=== PATIENT | female | born 1970 | race African-American/Black ===

== ENCOUNTER 2019-01-13 05:52 | Emergency (ER) | payer MEDICAID, MEDICARE ==
[~2019-01-13] VITALS: Ht 160 cm; Wt 64.0 kg
[~2019-01-13 05:52] MED LIST: ALBU18HF2; SEROQUEL
[2019-01-13] MEDS ORDERED: LORAZEPAM 2MG/ML CPJ IM ONE (06:30)
[2019-01-13] MEDS ORDERED: OLANZAPINE 10 MG/VIAL IM ONE (06:30)
[2019-01-13 07:32] LABS: BASOPHILS % 0.5 % (0.0-2.0); EOSINOPHILS % 0.9 % (0.0-5.0); HEMATOCRIT. 31.9 % (36.0-48.0); HEMOGLOBIN. 10.9 g/dL (12.0-16.0); LYMPHOCYTES % 14.2 % (20.0-50.0); MEAN CORPUSCULAR HEMOGLOBIN 33.3 pg (28.0-32.0); MEAN CORPUSCULAR VOLUME 97.4 fL (81.0-99.0); MEAN PLATELET VOLUME 8.2 fl (7.4-10.4); MONOCYTES % 8.1 % (2.0-8.0); NEUTROPHILS % 76.3 % (40.0-76.0); PLATELET 221 x1000/uL (130-400); RED BLOOD CELL COUNT 3.28 mill/uL (4.2-5.4); RED CELL DISTRIBUTION WIDTH 14.2 % (11.6-14.6)
[2019-01-13] MEDS ORDERED: SODIUM CHLORIDE 0.9% 1,000 ML IV ONE (07:46)
[2019-01-13 07:59] LABS: HCG SCREEN NEGATIVE
[2019-01-13 08:00] LABS: CHLORIDE 105 mEq/L (98-107)
[2019-01-13 08:03] LABS: ETHANOL BLOOD < 10 mg/dL
[2019-01-13 08:24] LABS: *BARBITURATES SCREEN URINE NEGATIVE (NEGATIVE); *BENZODIAZEPINES SCREEN URINE NEGATIVE (NEGATIVE)
[2019-01-13 08:25] LABS: *AMPHETAMINES SCREEN URINE NEGATIVE (NEGATIVE); METHADONE URINE SCREEN NEGATIVE (NEGATIVE); OPIATES URINE SCREEN NEGATIVE (NEGATIVE); PHENCYCLIDINE URINE SCREEN NEGATIVE (NEGATIVE)
[2019-01-13 08:28] LABS: *COCAINE SCREEN URINE PRESUMTIVE POSITIVE (NEGATIVE); CANNABINOID URINE SCREEN PRESUMTIVE POSITIVE (NEGATIVE)
[2019-01-13] MEDS ORDERED: MAGNESIUM 2 G PREMIX 50 ML IV ONE (08:45)
[2019-01-13] MEDS ORDERED: KCL 20MEQ/100ML PREMIX 100 ML IV ONE (08:45)
[2019-01-13] MEDS ORDERED: POTASSIUM CHLORIDE 20MEQ TABLET SR PO ONE (13:00)
[2019-01-13 15:00] VITALS: BP 118/62
== END 2019-01-13 15:33 | disposition home or self-care (01) ==
LOC: ER 05:52
DX: T40.5X1A Poisoning by cocaine, accidental (unintentional), initial encounter (principal); F14.129 Cocaine abuse with intoxication, unspecified; R45.851 Suicidal ideations; R45.1 Restlessness and agitation; F15.10 Other stimulant abuse, uncomplicated; F12.90 Cannabis use, unspecified, uncomplicated; F91.8 Other conduct disorders; E87.2 Acidosis; E86.0 Dehydration; R73.9 Hyperglycemia, unspecified; E87.6 Hypokalemia; D64.9 Anemia, unspecified; Z78.1 Physical restraint status; Y92.89 Other specified places as the place of occurrence of the external cause
CPT/HCPCS: 36415; 80048; 80305; 80307; 80320; 80329; 81025; 84703; 85025; 96365; 96372; 99284; J2060; J3475; J3480; J3490; J7030; G0480

== ENCOUNTER 2020-11-26 15:09 | Emergency (ER) | payer MEDICAID ==
[~2020-11-26] VITALS: Ht 160 cm; Wt 56.0 kg
[2020-11-26 15:34] VITALS: BP 121/58
[2020-11-26] MEDS ORDERED: ALBU18HF2 IH (16:33)
== END 2020-11-26 16:43 | disposition home or self-care (01) ==
LOC: ER 15:25
DX: J45.909 Unspecified asthma, uncomplicated (principal); Z76.0 Encounter for issue of repeat prescription; F14.10 Cocaine abuse, uncomplicated
CPT/HCPCS: 99283

== ENCOUNTER 2021-04-26 14:25 | Emergency (ER) | payer MEDICAID, MEDICARE ==
[~2021-04-26] VITALS: Ht 160 cm; Wt 57.0 kg
[~2021-04-26 14:25] MED LIST changes: +ALBU18HF2 IH
[2021-04-26] MEDS ORDERED: ALBU6.7H9 INH (14:36)
[2021-04-26 14:42] VITALS: BP 101/59
== END 2021-04-26 14:45 | disposition home or self-care (01) ==
LOC: ER 14:34
DX: Z76.0 Encounter for issue of repeat prescription (principal); J45.909 Unspecified asthma, uncomplicated; F14.10 Cocaine abuse, uncomplicated; Z79.899 Other long term (current) drug therapy
CPT/HCPCS: 99283

== ENCOUNTER 2021-11-28 12:41 | Emergency (ER) | payer MEDICAID, MEDICARE ==
[~2021-11-28] VITALS: Ht 160 cm; Wt 55.0 kg
[~2021-11-28 12:41] MED LIST changes: +ALBU6.7H9 INH
[2021-11-28 12:49] VITALS: BP 189/105
[2021-11-28] MEDS ORDERED: QUET300T2 MT (15:39)
== END 2021-11-28 16:02 | disposition home or self-care (01) ==
LOC: ER 12:41
DX: Z76.0 Encounter for issue of repeat prescription (principal); F99 Mental disorder, not otherwise specified; R03.0 Elevated blood-pressure reading, without diagnosis of hypertension; F14.90 Cocaine use, unspecified, uncomplicated; J45.909 Unspecified asthma, uncomplicated; Z79.51 Long term (current) use of inhaled steroids
CPT/HCPCS: 99283